=== PATIENT | male | born 1975 ===

== ENCOUNTER 2019-03-09 12:13 | Emergency (ER) | payer SELFPAY ==
[~2019-03-09] VITALS: Ht 175.3 cm; Wt 75.5 kg
[2019-03-09 12:21] VITALS: BP 138/86; TEMP 96.9
[2019-03-09 13:42] LABS: BASO % 0.4 % (0.0-2.0); EOS # 0.1 (0.0-0.7); EOS % 0.9 % (0-4.0); GRAN # 2.7 (1.4-6.5); GRAN % 50.2 % (42.2-75.2); HEMATOCRIT 49.6 % (42.0-52.0); HEMOGLOBIN 17.5 g/dl (13.5-18.0); LYMPH # 2.3 (1.2-3.4); LYMPH % 41.5 % (20.0-51.0); MEAN CELL VOLUME 88 fl (80.0-100.0); MEAN CORPUSCULAR HEMOGLOBIN 31 pg (27.0-31.0); MEAN CORPUSCULAR HGB CONC 35 g/dl (33.0-37.0); MEAN PLATELET VOLUME 11.9 fl (7.4-10.4); MONO # 0.4 (0.1-0.6); MONO % 6.8 % (1.7-9.3); PLATELET COUNT 155 K/mm3 (130-400); RED BLOOD COUNT 5.67 M/mm3 (4.20-5.60); REDCELL DISTRIBUTION WIDTH-CV 11.9 % (11.5-14.5)
[2019-03-09 13:57] LABS: ALBUMIN 4.9 gm/dL (3.5-5.0); BILIRUBIN,TOTAL 0.5 mg/dL (0.0-1.0); CALCIUM 9.6 mg/dL (8.4-10.2); CREATININE, serum 0.42 (0.66-1.25); POTASSIUM 4.2 mmol/L (3.4-5.0); TOTAL PROTEIN 8.7 gm/dL (6.4-8.2)
[2019-03-09 13:58] LABS: C-REACTIVE PROTEIN 0.5 mg/dL (0.0-0.9)
[2019-03-09 14:22] LABS: COLLECTION METHOD CLEAN CATCH
[2019-03-09 14:28] LABS: PH 5 (5-8); SQUAMOUS EPITHELIAL None Seen /hpf; URINE APPEARANCE Clear; URINE BACTERIA None Seen /hpf; URINE BILIRUBIN Negative (NEGATIVE); URINE BLOOD Negative (NEGATIVE); URINE COLOR Yellow; URINE GLUCOSE 3+ (NEGATIVE); URINE KETONE Negative (NEGATIVE); URINE LEUKOCYTE ESTERASE Negative (NEGATIVE); URINE NITRATE Negative (NEGATIVE); URINE PROTEIN(semi-quant) Negative (NEGATIVE); URINE RBC 0-2 /hpf; URINE UROBILINOGEN Negative (NEGATIVE)
[2019-03-09] MEDS ORDERED: VOLTAREN 75 DR75 MG PO (14:49)
[2019-03-09] MEDS ORDERED: GLUCOPHAGE500 MG/TAB PO (14:49)
[2019-03-09 15:10] VITALS: PULSE 97
== END 2019-03-09 15:23 | disposition home or self-care (01) ==
LOC: COL.ER 12:13
PROVIDERS: Family Medicine
DX: E11.65 Type 2 diabetes mellitus with hyperglycemia (principal); M25.519 Pain in unspecified shoulder; M54.6 Pain in thoracic spine; Z79.84 Long term (current) use of oral hypoglycemic drugs; Z91.14 Patient's other noncompliance with medication regimen
CPT/HCPCS: J7030